=== PATIENT | male | born 1960 | race Caucasian/White ===

== ENCOUNTER 2018-05-13 12:46 | Inpatient (IN) | payer MEDICARE ==
[~2018-05-13] VITALS: Ht 177.8 cm; Wt 142.9 kg
[2018-05-13 13:58] LABS: Alanine Aminotransfer (ALT/SGP 27 U/L (12-78); Albumin, Blood 3.1 g/dL (3.4-5.0); Albumin/Globulin Ratio 0.7 (0.8-1.8); Alk Phos 91 U/L (50-136); Anion Gap 7 mmol/L (6-16); Aspartate Aminotrans (AST/SGOT 22 U/L (12-37); Bilirubin, Total 0.3 mg/dL (0.1-1.0); Blood Urea Nitrogen 12 mg/dL (8-24); Bun/Creatinine Ratio 14.2 (12.0-20.0); CO2, Blood 29 mmol/L (21-32); Calcium, Blood 8.4 mg/dL (8.5-10.1); Chloride, Blood 104 mmol/L (98-108); Creatinine, Blood 0.85 mg/dL (0.60-1.20); Globulin, Blood 4.5 g/dL (2.2-4.0); Glomerular Filtration Rate >60 (60-); Glucose, Blood 142 mg/dL (70-99); Potassium, Blood 3.6 mmol/L (3.5-5.5); Sodium, Blood 140 mmol/L (136-145); Total Protein, Blood 7.6 g/dL (6.4-8.2)
[2018-05-13] MEDS ORDERED: ALBU90OI INH (14:05)
[2018-05-13] MEDS ORDERED: ATOR10 PO (14:06)
[2018-05-13] MEDS ORDERED: ERGO400 PO (14:07)
[2018-05-13] MEDS ORDERED: BENZ100A PO (14:07)
[2018-05-13] MEDS ORDERED: METF500C PO (14:09)
[2018-05-13] MEDS ORDERED: Coughtab 400400 MG PO (14:09)
[2018-05-13] MEDS ORDERED: MOME220I INH (14:10)
[2018-05-13] MEDS ORDERED: Hair, Skin & N1 EACH PO (14:10)
[2018-05-13] MEDS ORDERED: NITR.4SL SL (14:11)
[2018-05-13] MEDS ORDERED: STRIVERDI RESPIM4 GM INH (14:12)
[2018-05-13] MEDS ORDERED: OXYM.05NI (14:12)
[2018-05-13] MEDS ORDERED: K-Tab10 MEQ PO (14:13)
[2018-05-13] MEDS ORDERED: ROPI2 PO (14:13)
[2018-05-13] MEDS ORDERED: [UNRECOGNIZED DRUG - OTHER] MC (14:13)
[2018-05-13] MEDS ORDERED: PYRI100 PO (14:13)
[2018-05-13] MEDS ORDERED: SPIR25 PO (14:15)
[2018-05-13] MEDS ORDERED: TRIA15CR3 TOP (14:15)
[2018-05-13 14:32] LABS: BASOPHILS ABSOLUTE AUTO 0.05 K/mm3 (0.00-0.23); BASOPHILS PERCENT AUTO 1 % (0-2); EOSINOPHILS PERCENT AUTO 2 % (0-6); Hematocrit 45.6 % (37.0-53.0); Hemoglobin 14.2 g/dL (13.5-17.5); IMMATURE GRAN ABSOLUTE AUTO 0.02 K/mm3 (0.00-0.10); IMMATURE GRAN PERCENT AUTO 0 % (0-1); LYMPHOCYTES ABSOLUTE AUTO 2.86 K/mm3 (0.84-5.20); LYMPHOCYTES PERCENT AUTO 33 % (21-46); MONOCYTES ABSOLUTE AUTO 0.64 K/mm3 (0.16-1.47); MONOCYTES PERCENT AUTO 8 % (4-13); Mean Corpuscular HGB 27.8 pg (26.0-34.0); Mean Corpuscular HGB Conc 31.1 g/dL (31.5-36.5); Mean Corpuscular Volume 89 fL (80-100); NEUTROPHILS ABSOLUTE AUTO 4.79 K/mm3 (1.96-9.15); NEUTROPHILS PERCENT AUTO 56 % (41-73); Platelet Count 179 K/mm3 (150-400); RDW Coefficient Variation 13.4 % (11.7-14.2); RDW Standard Deviation 44.6 fL (35.1-46.3); White Blood Cell Count 8.56 K/mm3 (4.00-11.30)
--- NOTE | 2018-05-13 17:17 | NUR ---
ECHOCARDIOGRAM COMPLETE
[2018-05-13] MEDS ORDERED: STIOLTO RESPIMAT4 GM INH (17:33)
--- NOTE | 2018-05-14 04:42 | NUR ---
SHIFT SUMMARY PT HAS SLEPT WELL, GETS UP TO BATHROOM PER SELF WITHOUT DIFFICULTY. PT OFFERS NO C/O'S. OXYGEN ON AT 3L/NC. SAME DOSE AT HOME. WILL CONTINUE TO MONITOR.
[2018-05-14 05:14] LABS: Hematocrit 44.6 % (37.0-53.0); Mean Corpuscular HGB 27.8 pg (26.0-34.0); Mean Corpuscular HGB Conc 31.4 g/dL (31.5-36.5); Mean Corpuscular Volume 89 fL (80-100); Mean Platelet Volume 10.9 fL (9.1-12.4); Platelet Count 176 K/mm3 (150-400); RDW Coefficient Variation 13.6 % (11.7-14.2); RDW Standard Deviation 44.1 fL (35.1-46.3); Red Blood Cell Count 5.03 M/mm3 (4.30-5.90); White Blood Cell Count 6.34 K/mm3 (4.00-11.30)
[2018-05-14 05:38] LABS: Anion Gap 13 mmol/L (6-16); Blood Urea Nitrogen 15 mg/dL (8-24); CO2, Blood 24 mmol/L (21-32); Calcium, Blood 8.8 mg/dL (8.5-10.1); Chloride, Blood 102 mmol/L (98-108); Creatinine, Blood 0.88 mg/dL (0.60-1.20); Glomerular Filtration Rate >60 (60-); Glucose, Blood 218 mg/dL (70-99); Potassium, Blood 3.6 mmol/L (3.5-5.5); Sodium, Blood 139 mmol/L (136-145)
--- NOTE | 2018-05-14 15:42 | NUR ---
SUMMARY PT IS A/O X4, UP IND HOWEVER VERY SOB WITH EXERTION. ENCOURAGING USE OF URINAL/BSC INSTEAD OF AMBULATING TO BR D/T SOB & DIFFICULTY RECOVERING. O2 @ 3L, HOME DOSE/PT, BIOX 93%, LUNGS DECREASEWD T/O. RT PROVIDING NEB TX'S. THIS AM WHILE DR JALLOH IN ROOM HE WITNESSED SEIZURE, ORDERED EEG & CT HEAD, CT WAS DONE HOWEVER EEG UNAVAILABLE THIS WEEKEND/SET UP TECHNICIAN, NOTIFIED. START PT ON KEPPRA. SEIZURE PADS IN PLACE. PT IS PLEASANT/COOPERATIVE WITH CARE, VSS.
--- NOTE | 2018-05-15 04:46 | NUR ---
SHIFT SUMMARY NO CHANGES THIS SHIFT. PT HAS RESTED MOST OF THE NIGHT. NO ACUTE CHANGES. ASSESSMENT UNCHANGED. PT HAS DENIED NEEDS FOR MOST OF THE NIGHT. HE HAS BEEN INDEPENDENT IN THE ROOM. PLAN IS FOR EEG WEDNESDAY. CONNIE AT 2099, NO SEIZURE ACTIVITY NOTED THIS SHIFT. SEIZURE PADS IN PLACE. WILL CONTINUE TO MONITOR AND REPORT TO ONCOMING RN.
[2018-05-15 06:33] LABS: Anion Gap 9 mmol/L (6-16); Blood Urea Nitrogen 23 mg/dL (8-24); Bun/Creatinine Ratio 26.3 (12.0-20.0); CO2, Blood 30 mmol/L (21-32); Calcium, Blood 9.1 mg/dL (8.5-10.1); Chloride, Blood 102 mmol/L (98-108); Creatinine, Blood 0.88 mg/dL (0.60-1.20); Glomerular Filtration Rate >60 (60-); Glucose, Blood 158 mg/dL (70-99); Potassium, Blood 3.8 mmol/L (3.5-5.5); Sodium, Blood 141 mmol/L (136-145)
[2018-05-15] MEDS ORDERED: AZIT500 PO (10:39)
[2018-05-15] MEDS ORDERED: LEVE500 PO (10:40)
[2018-05-15] MEDS ORDERED: PRED10 PO (10:41)
--- NOTE | 2018-05-15 11:31 | NUR ---
DISCHARGE PT STATE BREATHING IMPROVED, FEELS NEAR BASELINE. DR JALLOH IN FOR ASSESSMENT, STATE LUNGS CLEAR, PT MAY GO HOME TODAY, PLACE D/C ORDER. PT STATE USES [facility], CLINICAL MICROBIOLOGIST FAX ORDER TO [facility], PT INFORMED THAT HE WILL GO TO [facility] TO PICK-UP SCRIPTS. D/C INSTRUCT PROVIDED. IV D/C INTACT. PT IN FOR TRANSPORT HOME, BRING PORTABLE O2. CHEMICAL PUMPER PROVIDE W/C ESCORT FROM HOSP. PT IS PLEASANT/APPRECIATIVE, STATE FEELS READY FOR D/C HOME. ENCOURAGED TO RETURN TO HOSP FOR WORSENING SYMPTOMS.
== END 2018-05-15 11:26 | disposition home or self-care (01) | DRG 291 ==
LOC: ER 12:46 → MEDS 15:26
PROVIDERS: Emergency Medicine; Hospitalist; ADMIT Internal Medicine
DX: I50.32 Chronic diastolic (congestive) heart failure (principal); J96.21 Acute and chronic respiratory failure with hypoxia; J44.1 Chronic obstructive pulmonary disease with (acute) exacerbation; Z68.42 Body mass index [BMI] 45.0-49.9, adult; Z99.81 Dependence on supplemental oxygen; E66.01 Morbid (severe) obesity due to excess calories; Z23 Encounter for immunization; G40.409 Other generalized epilepsy and epileptic syndromes, not intractable, without status epilepticus; Z74.09 Other reduced mobility; E11.9 Type 2 diabetes mellitus without complications; E78.5 Hyperlipidemia, unspecified; Z87.891 Personal history of nicotine dependence; Z79.899 Other long term (current) drug therapy; Z79.84 Long term (current) use of oral hypoglycemic drugs
CPT/HCPCS: 36415; 70470; 71046; 80048; 80053; 82947; 83605; 83880; 85025; 85027; 87040; 87070; 87205; 90686; 93005; 93010; 93306; 94640; 94760; 99285-25; G0008; J1650; J1940; J2060; J2930; Q9967

== ENCOUNTER 2018-05-19 17:29 | Observation (INO) | payer OTHER, MEDICARE ==
[~2018-05-19] VITALS: Ht 177.8 cm; Wt 140.6 kg
[~2018-05-19 17:29] MED LIST: ALBU90OI INH; ATOR10 PO; AZIT500 PO; BENZ100A PO; Coughtab 400400 MG PO; ERGO400 PO; Hair, Skin & N1 EACH PO; K-Tab10 MEQ PO; LEVE500 PO; METF500C PO; MOME220I INH; NITR.4SL SL; OXYM.05NI; PRED10 PO; PYRI100 PO; ROPI2 PO; SPIR25 PO; STIOLTO RESPIMAT4 GM INH; STRIVERDI RESPIM4 GM INH; TRIA15CR3 TOP; [UNRECOGNIZED DRUG - OTHER] MC
[2018-05-19 21:47] LABS: Anion Gap 8 mmol/L (6-16); Blood Urea Nitrogen 25 mg/dL (8-24); Bun/Creatinine Ratio 24.5 (12.0-20.0); CO2, Blood 30 mmol/L (21-32); Calcium, Blood 8.5 mg/dL (8.5-10.1); Chloride, Blood 96 mmol/L (98-108); Creatinine, Blood 1.02 mg/dL (0.60-1.20); Ethanol (Alcohol), Blood, Med <3 mg/dL; Glomerular Filtration Rate >60 (60-); Glucose, Blood 196 mg/dL (70-99); Potassium, Blood 3.8 mmol/L (3.5-5.5); Sodium, Blood 134 mmol/L (136-145); Troponin I <0.015 ng/mL (0.000-0.040)
[2018-05-19] MEDS ORDERED: FURO40 (22:43)
[2018-05-20 01:05] LABS: U Amphetamine Screen Not Detected; U Barbituate Screen Not Detected; U Benzodiazapine Screen Not Detected; U Buprenorphine Screen Not Detected; U Cannabinoids Screen Not Detected; U Cocaine Screen Not Detected; U Methadone Screen Not Detected; U Methamphetamine Screen Not Detected; U Opiates Screen Not Detected; U Oxycodone Screen Not Detected; U Phencyclidine Screen Not Detected; U Propoxyphene Screen Not Detected
--- NOTE | 2018-05-20 05:22 | NUR ---
SHIFT SUMMARY PT ER ADMIT THIS SHIFT FOR SYNCOPE. PT RECENTLY DC 05/15/18. PT HAS NOT HAD ANY EPISODE OF SYNCOPE SINCE ADMISSION. ORTHOSTATICS WERE NEGATIVE. PT HAS HX OF SEIZURES. PRECAUTIONS IN PLACE. PT A/OX4, PLESANT WITH CARE. TELE IN PLACE WITH NSR. EKG DONE THIS SHIFT, NO ACUTE CHANGES. IV ABX INFUSED ORDERED. PT DENIES PAIN. MOSTLY INDEPENDENT IN ROOM, USES URINAL AT BEDSIDE. INSTRUCTED TO CALL WHEN NEEDING TO GET OUT OF BED. ADMISSION COMPLETE. RESTFUL NIGHT. WILL CONTINUE TO MONITOR AND REPORT TO ONCOMING RN.
[2018-05-20 06:01] LABS: BASOPHILS ABSOLUTE AUTO 0.04 K/mm3 (0.00-0.23); BASOPHILS PERCENT AUTO 0 % (0-2); EOSINOPHILS ABSOLUTE AUTO 0.04 K/mm3 (0.00-0.68); EOSINOPHILS PERCENT AUTO 0 % (0-6); Hematocrit 46.5 % (37.0-53.0); Hemoglobin 14.6 g/dL (13.5-17.5); IMMATURE GRAN ABSOLUTE AUTO 0.07 K/mm3 (0.00-0.10); IMMATURE GRAN PERCENT AUTO 1 % (0-1); LYMPHOCYTES ABSOLUTE AUTO 2.51 K/mm3 (0.84-5.20); LYMPHOCYTES PERCENT AUTO 16 % (21-46); MONOCYTES ABSOLUTE AUTO 0.98 K/mm3 (0.16-1.47); MONOCYTES PERCENT AUTO 6 % (4-13); Mean Corpuscular HGB 27.8 pg (26.0-34.0); Mean Corpuscular HGB Conc 31.4 g/dL (31.5-36.5); Mean Corpuscular Volume 88 fL (80-100); Mean Platelet Volume 11.2 fL (9.1-12.4); NEUTROPHILS PERCENT AUTO 76 % (41-73); Platelet Count 191 K/mm3 (150-400); RDW Coefficient Variation 13.9 % (11.7-14.2); RDW Standard Deviation 45.2 fL (35.1-46.3); Red Blood Cell Count 5.26 M/mm3 (4.30-5.90); White Blood Cell Count 15.44 K/mm3 (4.00-11.30)
[2018-05-20 06:18] LABS: Anion Gap 8 mmol/L (6-16); Blood Urea Nitrogen 23 mg/dL (8-24); Bun/Creatinine Ratio 24.3 (12.0-20.0); CO2, Blood 32 mmol/L (21-32); Calcium, Blood 8.2 mg/dL (8.5-10.1); Chloride, Blood 97 mmol/L (98-108); Creatinine, Blood 0.95 mg/dL (0.60-1.20); Glomerular Filtration Rate >60 (60-); Glucose, Blood 112 mg/dL (70-99); Potassium, Blood 3.2 mmol/L (3.5-5.5); Sodium, Blood 137 mmol/L (136-145)
--- NOTE | 2018-05-20 17:32 | NUR ---
SHIFT SUMMARY PT HAS HAD NO ACUTE CHANGES THIS SHIFT, NO COMPLAINTS OF ANY KIND. WILL CONT TO MONITOR UNTIL REPORT GIVEN TO JESSIE RN.
--- NOTE | 2018-05-21 04:04 | NUR ---
SHIFT SUMMARY PT A&OX4. DENIES PAIN AND N/V. SOB WITH MINIMAL ACTIVITY AND EXERTION. ON 3L VIA NC WITH O2 SAT >90%. PULSE OX IN PLACE. PT HAD A SHOWER LAST NIGHT. SLEPT ON AND OFF. CALLS APPROPRIATELY. WILL CONTINUE TO MONITOR.
[2018-05-21 04:55] LABS: Hematocrit 45.6 % (37.0-53.0); Hemoglobin 14.2 g/dL (13.5-17.5); Mean Corpuscular HGB 27.7 pg (26.0-34.0); Mean Corpuscular HGB Conc 31.1 g/dL (31.5-36.5); Mean Corpuscular Volume 89 fL (80-100); Mean Platelet Volume 10.7 fL (9.1-12.4); Platelet Count 178 K/mm3 (150-400); RDW Coefficient Variation 13.7 % (11.7-14.2); RDW Standard Deviation 45.1 fL (35.1-46.3); Red Blood Cell Count 5.13 M/mm3 (4.30-5.90); White Blood Cell Count 10.76 K/mm3 (4.00-11.30)
[2018-05-21 05:17] LABS: Anion Gap 5 mmol/L (6-16); Blood Urea Nitrogen 20 mg/dL (8-24); CO2, Blood 32 mmol/L (21-32); Calcium, Blood 8.2 mg/dL (8.5-10.1); Chloride, Blood 101 mmol/L (98-108); Creatinine, Blood 0.91 mg/dL (0.60-1.20); Glomerular Filtration Rate >60 (60-); Glucose, Blood 102 mg/dL (70-99); Potassium, Blood 3.5 mmol/L (3.5-5.5); Sodium, Blood 138 mmol/L (136-145)
[2018-05-21] MEDS ORDERED: GUAI600T33 PO (12:31)
[2018-05-21] MEDS ORDERED: DULERA 100 MCG/13 GM INH (12:32)
[2018-05-21] MEDS ORDERED: ERGO400 PO (12:32)
[2018-05-21] MEDS ORDERED: Klor-Con M1010 MEQ PO (12:34)
--- NOTE | 2018-05-21 15:45 | NUR ---
SHIFT SUMMARY/DC PT HAS HAD NO ACUTE CHANGES THIS SHIFT, NO COMPLAINTS OF ANY KIND. REVIEWED DC INSTRUCTIONS, PT VERBALIZED UNDERSTANDING. PT WAS TRANSPORTED VIA W/C TO DC IN PRIVATE VEHICLE @ 1440.
== END 2018-05-21 14:40 | disposition home or self-care (01) ==
LOC: ER 17:29 → MEDS 17:30
PROVIDERS: ADMIT Family Medicine
DX: R55 Syncope and collapse (principal); J96.21 Acute and chronic respiratory failure with hypoxia; J44.1 Chronic obstructive pulmonary disease with (acute) exacerbation; E11.9 Type 2 diabetes mellitus without complications; I50.32 Chronic diastolic (congestive) heart failure; G47.33 Obstructive sleep apnea (adult) (pediatric); E66.9 Obesity, unspecified; G40.409 Other generalized epilepsy and epileptic syndromes, not intractable, without status epilepticus; F17.210 Nicotine dependence, cigarettes, uncomplicated; Z74.09 Other reduced mobility; Z79.01 Long term (current) use of anticoagulants; Z79.899 Other long term (current) drug therapy
CPT/HCPCS: 36415; 70450; 71045; 71046; 80048; 82947; 83880; 84146; 84484; 85025; 85027; 93005; 93010; 94640; 94762; 96365; 96366; 96372; 96375; 96376; 97161; 97530; 99285-25; G0378; G0480; J0456; J1650; J1940; J3480; J7050

== ENCOUNTER 2018-08-11 05:04 | Emergency (ER) | payer MEDICARE ==
[~2018-08-11] VITALS: Ht 180.3 cm; Wt 134.7 kg
[~2018-08-11 05:04] MED LIST changes: +DULERA 100 MCG/13 GM INH; +FURO40; +GUAI600T33 PO; +Klor-Con M1010 MEQ PO
[2018-08-11 05:41] LABS: BASOPHILS ABSOLUTE AUTO 0.07 K/mm3 (0.00-0.23); BASOPHILS PERCENT AUTO 1 % (0-2); EOSINOPHILS ABSOLUTE AUTO 0.44 K/mm3 (0.00-0.68); EOSINOPHILS PERCENT AUTO 4 % (0-6); Hematocrit 43.8 % (37.0-53.0); Hemoglobin 13.7 g/dL (13.5-17.5); IMMATURE GRAN ABSOLUTE AUTO 0.07 K/mm3 (0.00-0.10); IMMATURE GRAN PERCENT AUTO 1 % (0-1); LYMPHOCYTES ABSOLUTE AUTO 3.05 K/mm3 (0.84-5.20); LYMPHOCYTES PERCENT AUTO 28 % (21-46); MONOCYTES ABSOLUTE AUTO 0.83 K/mm3 (0.16-1.47); MONOCYTES PERCENT AUTO 8 % (4-13); Mean Corpuscular HGB 28.5 pg (26.0-34.0); Mean Corpuscular HGB Conc 31.3 g/dL (31.5-36.5); Mean Corpuscular Volume 91 fL (80-100); Mean Platelet Volume 10.3 fL (9.1-12.4); NEUTROPHILS ABSOLUTE AUTO 6.39 K/mm3 (1.96-9.15); NEUTROPHILS PERCENT AUTO 59 % (41-73); Platelet Count 202 K/mm3 (150-400); RDW Coefficient Variation 14.4 % (11.7-14.2); White Blood Cell Count 10.85 K/mm3 (4.00-11.30)
[2018-08-11] MEDS ORDERED: TORSE20 PO (06:18)
[2018-08-11 06:43] LABS: Alanine Aminotransfer (ALT/SGP 21 U/L (12-78); Albumin, Blood 3.4 g/dL (3.4-5.0); Albumin/Globulin Ratio 0.8 (0.8-1.8); Alk Phos 96 U/L (50-136); Anion Gap 7 mmol/L (6-16); Aspartate Aminotrans (AST/SGOT 13 U/L (12-37); Bilirubin, Total 0.5 mg/dL (0.1-1.0); Blood Urea Nitrogen 15 mg/dL (8-24); Bun/Creatinine Ratio 20.2 (12.0-20.0); CO2, Blood 30 mmol/L (21-32); Chloride, Blood 102 mmol/L (98-108); Creatinine, Blood 0.74 mg/dL (0.60-1.20); Globulin, Blood 4.1 g/dL (2.2-4.0); Glomerular Filtration Rate >60 (60-); Glucose, Blood 133 mg/dL (70-99); Potassium, Blood 3.8 mmol/L (3.5-5.5); Sodium, Blood 139 mmol/L (136-145); Total Protein, Blood 7.5 g/dL (6.4-8.2)
== END 2018-08-11 07:56 | disposition home or self-care (01) ==
LOC: ER 05:04
PROVIDERS: Emergency Medicine
DX: R07.89 Other chest pain (principal); Z79.899 Other long term (current) drug therapy; Z79.84 Long term (current) use of oral hypoglycemic drugs; Z79.52 Long term (current) use of systemic steroids; J44.9 Chronic obstructive pulmonary disease, unspecified; I50.9 Heart failure, unspecified; E11.9 Type 2 diabetes mellitus without complications; Z87.891 Personal history of nicotine dependence
CPT/HCPCS: 36415; 71046; 80053; 83880; 84484; 85025; 93005; 93010; 94640; 99284-25

== ENCOUNTER 2019-06-25 15:09 | Emergency (ER) | payer OTHER ==
[~2019-06-25] VITALS: Ht 177.8 cm; Wt 135.2 kg
[~2019-06-25 15:09] MED LIST changes: +TORSE20 PO
[2019-06-25 15:49] LABS: BASOPHILS ABSOLUTE AUTO 0.01 K/mm3 (0.00-0.23); BASOPHILS PERCENT AUTO 0 % (0-2); EOSINOPHILS ABSOLUTE AUTO 0.04 K/mm3 (0.00-0.68); EOSINOPHILS PERCENT AUTO 1 % (0-6); Hematocrit 44.1 % (37.0-53.0); Hemoglobin 14.4 g/dL (13.5-17.5); IMMATURE GRAN ABSOLUTE AUTO 0.04 K/mm3 (0.00-0.10); IMMATURE GRAN PERCENT AUTO 1 % (0-1); LYMPHOCYTES ABSOLUTE AUTO 1.91 K/mm3 (0.84-5.20); LYMPHOCYTES PERCENT AUTO 26 % (21-46); MONOCYTES ABSOLUTE AUTO 0.95 K/mm3 (0.16-1.47); MONOCYTES PERCENT AUTO 13 % (4-13); Mean Corpuscular HGB Conc 32.7 g/dL (31.5-36.5); Mean Corpuscular Volume 86 fL (80-100); Mean Platelet Volume 10.4 fL (9.1-12.4); NEUTROPHILS ABSOLUTE AUTO 4.55 K/mm3 (1.96-9.15); NEUTROPHILS PERCENT AUTO 61 % (41-73); Platelet Count 170 K/mm3 (150-400); RDW Coefficient Variation 14.6 % (11.7-14.2); RDW Standard Deviation 45.9 fL (35.1-46.3); Red Blood Cell Count 5.14 M/mm3 (4.30-5.90)
[2019-06-25 16:22] LABS: Alanine Aminotransfer (ALT/SGP 25 U/L (12-78); Albumin/Globulin Ratio 0.6 (0.8-1.8); Alk Phos 88 U/L (50-136); Anion Gap 7 mmol/L (6-16); Aspartate Aminotrans (AST/SGOT 29 U/L (12-37); Bilirubin, Total 0.6 mg/dL (0.1-1.0); Blood Urea Nitrogen 10 mg/dL (8-24); Bun/Creatinine Ratio 10.8 (12.0-20.0); CO2, Blood 30 mmol/L (21-32); Calcium, Blood 8.4 mg/dL (8.5-10.1); Chloride, Blood 97 mmol/L (98-108); Creatinine, Blood 0.92 mg/dL (0.60-1.20); Globulin, Blood 4.7 g/dL (2.2-4.0); Glomerular Filtration Rate >60 (60-); Glucose, Blood 148 mg/dL (70-99); Potassium, Blood 3.2 mmol/L (3.5-5.5); Sodium, Blood 134 mmol/L (136-145); Total Protein, Blood 7.7 g/dL (6.4-8.2); Troponin I <0.015 ng/mL (0.000-0.040)
[2019-06-25] MEDS ORDERED: INSULANPEN SC (18:12)
[2019-06-25] MEDS ORDERED: AZIT250 PO (18:12)
== END 2019-06-25 19:01 | disposition home or self-care (01) ==
LOC: ER 15:09
PROVIDERS: Physician Assistant
DX: R07.9 Chest pain, unspecified (principal); E11.9 Type 2 diabetes mellitus without complications; I50.9 Heart failure, unspecified; E78.5 Hyperlipidemia, unspecified; Z87.891 Personal history of nicotine dependence; Z79.899 Other long term (current) drug therapy
CPT/HCPCS: 36415; 71046; 80053; 84484; 85025; 93005; 93010; 99284-25

== ENCOUNTER 2019-08-09 21:13 | Emergency (ER) | payer OTHER ==
[~2019-08-09] VITALS: Ht 180.3 cm; Wt 133.8 kg
[~2019-08-09 21:13] MED LIST changes: +AZIT250 PO; +INSULANPEN SC
[2019-08-09 21:47] LABS: BASOPHILS ABSOLUTE AUTO 0.06 K/mm3 (0.00-0.23); BASOPHILS PERCENT AUTO 1 % (0-2); EOSINOPHILS ABSOLUTE AUTO 0.36 K/mm3 (0.00-0.68); EOSINOPHILS PERCENT AUTO 3 % (0-6); Hematocrit 48.6 % (37.0-53.0); Hemoglobin 15.3 g/dL (13.5-17.5); IMMATURE GRAN ABSOLUTE AUTO 0.04 K/mm3 (0.00-0.10); IMMATURE GRAN PERCENT AUTO 0 % (0-1); LYMPHOCYTES PERCENT AUTO 49 % (21-46); MONOCYTES ABSOLUTE AUTO 0.75 K/mm3 (0.16-1.47); MONOCYTES PERCENT AUTO 7 % (4-13); Mean Corpuscular HGB 27.8 pg (26.0-34.0); Mean Corpuscular HGB Conc 31.5 g/dL (31.5-36.5); Mean Corpuscular Volume 88 fL (80-100); NEUTROPHILS ABSOLUTE AUTO 4.63 K/mm3 (1.96-9.15); NEUTROPHILS PERCENT AUTO 41 % (41-73); Platelet Count 225 K/mm3 (150-400); RDW Coefficient Variation 13.8 % (11.7-14.2); Red Blood Cell Count 5.51 M/mm3 (4.30-5.90); White Blood Cell Count 11.44 K/mm3 (4.00-11.30)
[2019-08-09 22:08] LABS: Alanine Aminotransfer (ALT/SGP 21 U/L (12-78); Albumin, Blood 3.3 g/dL (3.4-5.0); Albumin/Globulin Ratio 0.8 (0.8-1.8); Alk Phos 102 U/L (50-136); Anion Gap 7 mmol/L (6-16); Aspartate Aminotrans (AST/SGOT 20 U/L (12-37); Bilirubin, Total 0.4 mg/dL (0.1-1.0); Blood Urea Nitrogen 16 mg/dL (8-24); Bun/Creatinine Ratio 10.5 (12.0-20.0); CO2, Blood 32 mmol/L (21-32); Calcium, Blood 8.9 mg/dL (8.5-10.1); Chloride, Blood 100 mmol/L (98-108); Creatinine, Blood 1.53 mg/dL (0.60-1.20); Globulin, Blood 4.3 g/dL (2.2-4.0); Glomerular Filtration Rate 50 (60-); Glucose, Blood 170 mg/dL (70-99); Potassium, Blood 3.2 mmol/L (3.5-5.5); Sodium, Blood 139 mmol/L (136-145); Total Protein, Blood 7.6 g/dL (6.4-8.2); Troponin I <0.015 ng/mL (0.000-0.040)
== END 2019-08-09 23:28 | disposition home or self-care (01) ==
LOC: ER 21:13
PROVIDERS: Nurse Practitioner
DX: R06.02 Shortness of breath (principal); T39.315A Adverse effect of propionic acid derivatives, initial encounter; J44.9 Chronic obstructive pulmonary disease, unspecified; E87.6 Hypokalemia; I50.9 Heart failure, unspecified; E11.9 Type 2 diabetes mellitus without complications; E78.00 Pure hypercholesterolemia, unspecified; Z79.899 Other long term (current) drug therapy; Z79.51 Long term (current) use of inhaled steroids; Z79.4 Long term (current) use of insulin; Z87.891 Personal history of nicotine dependence
CPT/HCPCS: 71260; 80053; 83880; 84484; 85025; 93005; 93010; J1100; J1200; Q9967